=== PATIENT | female | born 1930 | race Caucasian/White ===

== ENCOUNTER 2018-10-07 13:12 | Emergency (ER) | payer MEDICARE ==
[~2018-10-07 13:12] MED LIST: AEC81 PO; ATEN100T PO; ATOR40TA71 PO; DONE10TA43 PO; HYDR25TA PO; LEVO50TA11 PO; LOSA50TA64 PO
== END 2018-10-07 16:18 | disposition home or self-care (01) ==
LOC: EDH 13:12
DX: J01.90 Acute sinusitis, unspecified (principal); R51 Headache; I10 Essential (primary) hypertension; E07.9 Disorder of thyroid, unspecified; E78.5 Hyperlipidemia, unspecified; F03.90 Unspecified dementia, unspecified severity, without behavioral disturbance, psychotic disturbance, mood disturbance, and anxiety; Z88.0 Allergy status to penicillin
CPT/HCPCS: 70450